=== PATIENT | male | born 1940 | race Caucasian/White ===

== ENCOUNTER 2017-10-24 12:24 | Day surgery (SDC) | payer MEDICARE, MEDICAID ==
[~2017-10-24] VITALS: Ht 172.7 cm; Wt 77.1 kg
[~2017-10-24 12:24] MED LIST: ADVA100A INH; ALBU17I INH; ALBU1AER INH; CLOP75 PO; FOSI10TA PO; FURO1TAB93 PO; GABA300 PO; GLUC10TA3 PO; METF-324 PO; POTA-243 PO; PRAV10 PO; PRIL40CA PO; PRIN5TAB PO; SPIRCAP INH; ST JTAB PO; TRAM50TA PO; TUMS750C OR; VITA20003 OR
[2017-10-24] MEDS ORDERED: IOHEXOL 350 MG/ML 50 ML BTL (for Cath Lab) OTHER ONE ×2 (12:25)
--- NOTE | 2017-10-24 12:59 | PD.VS.PN ---
Pre-operative Note Pre-operative diagnosis: PAD, R LE tissue loss Planned procedure: Aortogram w/ R LE angiogram endovascular intervention Interval History: Pt has been feeling well and no complaints except his foot hurting. Ready for angiogram and potential endovascular intervention. Labs: pending Blood: none needed Imaging: will make in cathode builder Orders: NPO Solumedrol / benadryl Post-operative destination: DOCU Operative site marked: Yes Consent: Informed consent has been obtained from Hieu Watkins. I have explained the procedure in detail and discussed the risks, benefits, and potential complications. All questions have been answered. Alvarado Gonsalez MD Oct 24, 2017 12:59
[2017-10-24] MEDS ORDERED: SODIUM BICARBONATE 100 MEQ in D5W 1000 ML IV SCH (13:15)
[2017-10-24] MEDS ORDERED: methylPREDNISolone SOD SUCC 125 MG/2 ML VIAL IV PUSH ONE (13:30)
[2017-10-24] MEDS ORDERED: diphenhydrAMINE HCL 50 MG/ML VIAL IV PUSH ONE (13:30)
[2017-10-24 13:32] LABS: AUTOMATED NEUTROPHIL # 8.1 TH/MM3 (1.8-7.7); BASOPHIL % 0.3 % (0.0-2.0); EOSINOPHIL # 0.1 TH/MM3 (0-0.4); EOSINOPHIL % 0.7 % (0.0-4.0); HEMOGLOBIN 7.6 GM/DL (13.0-17.0); LYMPH % 9.8 % (9.0-44.0); LYMPHOCYTE # 0.9 TH/MM3 (1.0-4.8); MEAN CELL VOLUME 65.4 FL (80.0-100.0); MEAN CORPUSCULAR HEMOGLOBIN 19.9 PG (27.0-34.0); MEAN CORPUSCULAR HGB CONC 30.5 % (32.0-36.0); MEAN PLATELET VOLUME 9.3 FL (7.0-11.0); MONO % 5.5 % (0.0-8.0); MONOCYTE # 0.5 TH/MM3 (0-0.9); NEUT % 83.7 % (16.0-70.0); PLATELET COUNT 145 TH/MM3 (150-450); RED BLOOD COUNT 3.82 MIL/MM3 (4.50-5.90); RED CELL DISTRIBUTION WIDTH 18.4 % (11.6-17.2); WHITE BLOOD COUNT 9.6 TH/MM3 (4.0-11.0)
[2017-10-24 13:36] LABS: INTERNATIONAL NORMALIZED RATIO 1.1 RATIO; PROTHROMBIN TIME - PATIENT 11.1 SEC (9.8-11.6)
[2017-10-24 13:38] VITALS: BP 112/53; PULSE 58; RESP 18; TEMP 97.8; O2SAT 99
[2017-10-24 13:45] LABS: BICARBONATE 17.3 MEQ/L (21.0-32.0); CALCIUM 8.9 MG/DL (8.5-10.1); CREATININE 2.23 MG/DL (0.60-1.30)
[2017-10-24] MEDS ORDERED: MULT-65 PO (13:54)
[2017-10-24] MEDS ORDERED: NOVOLOGP2 SQ (13:54)
[2017-10-24] MEDS ORDERED: GABA400C5 PO (13:54)
[2017-10-24] MEDS ORDERED: FURO40TA PO (13:54)
[2017-10-24] MEDS ORDERED: FERR325T18 PO (13:54)
[2017-10-24] MEDS ORDERED: RISP0.5T2 PO (13:54)
[2017-10-24] MEDS ORDERED: LEXA20TA PO (13:54)
[2017-10-24] MEDS ORDERED: FOSI10TA PO (13:54)
[2017-10-24] MEDS ORDERED: ADVA250A INH (13:54)
[2017-10-24] MEDS ORDERED: POTA10CA PO (13:54)
[2017-10-24] MEDS ORDERED: CLOP75TA PO (13:54)
[2017-10-24] MEDS ORDERED: MEMA28CA PO (13:54)
[2017-10-24] MEDS ORDERED: TRAZ100T10 PO (13:54)
[2017-10-24] MEDS ORDERED: DOCU100C15 PO (13:54)
[2017-10-24] MEDS ORDERED: LOVA10TA PO (13:54)
[2017-10-24] MEDS ORDERED: METF500T PO (13:54)
[2017-10-24] MEDS ORDERED: DONE10TA7 PO (13:54)
[2017-10-24] MEDS ORDERED: RANI150T PO (13:54)
[2017-10-24] MEDS ORDERED: HEPARIN-NS/PF FLUSH BAG 2,000 ML IV FLUSH ONE (14:01)
[2017-10-24] MEDS ORDERED: LIDOCAINE HCL 2% 50 ML VIAL ONE (14:02)
[2017-10-24] MEDS ORDERED: MIDAZOLAM HCL 2 MG/2 ML VIAL ONE (14:02)
[2017-10-24] MEDS ORDERED: NITROGLYCERIN INJ 0 ML ONE (14:02)
[2017-10-24] MEDS ORDERED: HEPARIN SODIUM - IV 10,000 UNITS/10 ML VIAL ONE (14:02)
[2017-10-24 14:04] LABS: KERATOCYTES OCC (NORMAL); OVALOCYTES 2+ (NORMAL)
--- NOTE | 2017-10-24 14:31 | HHI.PR ---
cc: Alvarado Gonsalez MD Immediate Post Op Note Procedure Date: Oct 24, 2017 Pre Op Diagnosis: R LE tissue loss, PAD Post Op Diagnosis: R LE tissue loss, PAD Surgeon: Alvarado Gonsalez Derrick Builder(s): none Procedure: R LE angiogram Findings: normal vasculature without any hemodynamically significant stenosis Additional Information: 4F sheath removed in OR Complications: none apparent Estimated blood loss: 5mL Anesthesia: MAC Drains: None IVF Patient to: Other (DOCU) Patient Condition: Good Date/Time of Procedure: SEE SURGICAL CARE RECORD Alvarado Gonsalez MD Oct 24, 2017 14:31
--- NOTE | 2017-10-24 14:45 | CATHPROC ---
[facility] [employer] HIS Report Study Information Study Number Admission Scheduled Start Study Start [id number] Oct 24 2017 12:24PM 10/24/2017 Oct 24 2017 1:56PM [facility] Service Cath Endovascular Study Admit Source Facility Department Other [facility] Physician and Clinical Staff Initial MD Gonsalez, Alvarado Productivity Engineer Belem Meeks,RN Recorder Charlie Lara,RT(R) ScrRiana Saeed,RT(R) (BS) Procedures Performed Procedure Location (Site) Vessel Name Abdominal Angiogram Fem Art (left) Femoral Art Abdominal Angiogram Popliteal R (R10) Popliteal Abdominal Angiogram SFA (right) Femoral Art Abdominal Angiogram Tib, Ant. (right) Popliteal Equipment Time Design Draftsman Description Size Mfg Part Number Used/Scraped [id number] 14:21 ANGIO-DYNAMICS OMNI FLUSH 65CM CATHETER FR 4 Used *[id number] INTRODUCER SET, 14:21 [employer] FR 5 [id number] *[id number] Used MICROPUNCTURE STIFF [id number] 14:21 [employer] PACK, CCL CUSTOM * Used *[id number] 14:21 [employer] MEDICAL PRESSURE TUBING 48" 48" [id number] Used [id number] 14:21 NAMIC TUBING, HIGH PRESSURE 20" 20" Used *[id number] TUBING, PRESSURE INJECTION [id number] 14:21 NAMIC PACER 72" Used 72" *[id number] 14:21 [employer]ED OMNIPAQUE, 300 MG, 150ML 150ML [id number] Used 14:21 [employer] OMNIPAQUE, 300 MG, 50ML 50ML [id number] Used [id number] 14:21 JASMINE MEDICAL BLANKET,WARM AIR CCL * Used *[id number] 14:21 TERUMO MEDICAL SHEATH, FR4 TERUMO (10CM) FR 4 Used *[id number] WIRE, ANGLED GLIDE .035 [id number] 14:21 TERUMO MEDICAL/JULIET 260CM Used 260CM *[id number] History: Allergies Allergy Reaction No Known Allergies shellfish derived Medication Medication Total Dose (Bolus/Oral) Medication Total Dosage/Unit 1% XYLOCAINE 10 mL BENADRYL 100 mg SOLU-MEDROL 125 mg VERSED 1 mg Medications (Bolus/Oral) Medication Time Given Dosage/Unit Administered By Reason SOLU-MEDROL 10/24/2017 2:05:18 PM 125 mg Adamy, Belem 125 mg SOLU-MEDROL given in lab by Belem Meeks, ANNETTE via Peripheral IV. Ordered by Alvarado Gonsalez. BENADRYL 10/24/2017 2:06:36 PM 50 mg Adamy, Belem 50 mg BENADRYL given in lab by Belem Meeks, RN via Peripheral IV. Ordered by Alvarado Gonsalez. VERSED 10/24/2017 2:10:30 PM 1 mg Adamy, Belem 1 mg VERSED given in lab by Belem Meeks, ANNETTE via Peripheral IV. Ordered by Alvarado Gonsalez. BENADRYL 10/24/2017 2:11:43 PM 50 mg Adamy, Belem 50 mg BENADRYL given in lab by Belem Meeks, ANNETTE via Peripheral IV. Ordered by Alvarado Gonsalez. 1% XYLOCAINE 10/24/2017 2:20:08 PM 10 mL Alvarado Gonsalez 10 mL 1% XYLOCAINE given in lab by Alvarado Gonsalez in Left Groin via Subcutaneous. Ordered by Alvarado Gonsalez. Medication (Drip) Medication Time Given Dosage/Unit Concentration/Unit Diluent (ml) Solution IV Solutions 10/24/2017 2:17:09 PM 0 mL (IV) 500 NaCl .9 Patient arrived on IV Solutions in Left Antecubital via Peripheral IV. Pump/Drip Flow = 20 ml/hr usin g NaCl .9. Final Case Assessment Cardiovascular HR Rhythm NIBP Chest Pain 63 sr 127/61 0 Edema Present Skin color Skin None Normal Warm Dry Circulatory - Right Pulses Femoral 2 Scale (0,1,2,3,4,d) Circulatory - Left Pulses Femoral 2 Scale (0,1,2,3,4,d) Neurological State Oriented to time-place- Alert Moves all extremities person Respiration - General Respiration Rate SpO2 (%) O2 (lpm) (B/min) 18 96 0 Final Case Assessment Cardiovascular HR Rhythm NIBP 86 sr 98/49 Edema Present Skin color Skin None Normal Warm Dry Circulatory - Right Pulses Femoral 2 Scale (0,1,2,3,4,d) Circulatory - Left Pulses Femoral 2 Scale (0,1,2,3,4,d) Neurological State Oriented to time-place- Moves all extremities person Respiration - General Respiration Rate SpO2 (%) O2 (lpm) (B/min) 18 96 0 Chronological Log Time Study Chronological Log 13:56:34 Patient arrived via Bed. 13:56:35 Patient Name, D.O.B, / Armband Verified By R.N. 14:05:18 125 mg SOLU-MEDROL given in lab by Belem Meeks RN via Peripheral IV. Ordered by Robert. Sunshine 14:06:36 50 mg BENADRYL given in lab by Belem Meeks RN via Peripheral IV. Ordered by Irena Gonsalez. Vitals capture started with the following parameters, Patient=Adult, Interval=5 min, Initial Pr dppfjo=394 mmHg, 14:08:21 Deflation Rate=5 mmHg, Cuff placed on Right Ankle 14:09:07 HR=68 bpm, GSSH=477/61 mmhg, SpO2=97.0 %, Resp=17 B/min, Platt=2 14:10:30 1 mg VERSED given in lab by Belem Meeks RN via Peripheral IV. Ordered by John Gonsalez 14:11:43 50 mg BENADRYL given in lab by Belem Meeks RN via Peripheral IV. Ordered by Irena Gonsalez 14:13:13 Reference ECG taken 14:13:48 Consent signed by the physician and the patient and verified by the [facility] staff. 14:13:49 Verbal Stimulation=2 Physical Stimulation=2 Airway=2 Respiration=2 TOTAL=8. (0=absent, 1=li mited, 2=present) 14:13:58 HR=68 bpm, TCRD=465/57 mmhg, SpO2=93.0 %, Resp=10 B/min, Platt=2 14:13:58 Presedation assessment performed by [facility] RN. 14:14:00 Patient has been NPO for More than 6Hrs. 14:14:08 Skin Breakdown-noted is non healing healing ulcer present right LLE. 14:16:53 A # 20 IV was noted in the Antecubital (left). Grade = 0 14:17:09 Patient arrived on IV Solutions in Left Antecubital via Peripheral IV. Pump/Drip Flow = 20 ml/hr using NaCl .9. 14:17:26 History and physical on the chart or being dictated. Assessment: Final Case, HR=63 BPM, Rhythm=sr, WZDK=607/61 mmhg, Chest Pain=0, Edema=None, Color =Normal, Skin = Warm, Dry Right Pulses: Femoral=2 14:17:29 Left Pulses: Femoral=2 Neurological: State=Alert, Ox3, ALBERTO Respiration: Resp=18 B/min, SpO2=96 %, O2=0 lpm 14:18:57 HR=69 bpm, IBBR=602/52 mmhg, SpO2=93.0 %, Resp=10 B/min, Platt=2 14:19:25 Bilateral groins prepped with 2% chlorhexidine, and draped after a 3 minute waiting time. Time Out. Correct patient, correct procedure, correct physician, power injector loaded with con trast with surgical team 14:19:34 present. Time Out Concurred by MD and individual staff in procedure. Loaded by Shey Meeks rn , verified by Sandra Mccray. 14:20:00 Case Start 14:20:01 Verbal Stimulation=2 Physical Stimulation=2 Airway=2 Respiration=2 TOTAL=8. (0=absent, 1=li mited, 2=present) 14:20:08 10 mL 1% XYLOCAINE given in lab by Alvarado Gonsalez in Left Groin via Subcutaneous. Ordered b Alvarado Haq. 14:20:24 Access site was Left Femoral Artery. 14:20:54 A SHEATH, FR4 TERUMO (10CM) FR 4 was advanced into the Fem Art (left) using the Percutaneou s technique. A SHEATH, FR4 TERUMO (10CM) FR 4 was exchanged in the Fem Art (left). This was necessary in ord er to 14:21:01 accomodate a larger catheter. A OMNI FLUSH 65CM CATHETER FR 4 was advanced over a wire. OMNIPAQUE, 300 MG, 150ML 150ML was us ed for 14:21:07 injections. 14:21:32 Wire removed 14::42 Through a OMNI FLUSH 65CM CATHETER FR 4, The Right fem. Art was injected with 4 cc's of con trast. 14:22:36 Through a OMNI FLUSH 65CM CATHETER FR 4, The Right SFA was injected with 4 cc's of contrast . 14:22:52 Through a OMNI FLUSH 65CM CATHETER FR 4, The Right POP. was injected with 4 cc's of contras t. 14:23:41 Through a OMNI FLUSH 65CM CATHETER FR 4, The Right Tibials were injected with 4 cc's of con trast. 14:23:56 HR=67 bpm, NIBP=97/49 mmhg, SpO2=94.0 %, Resp=10 B/min, Platt=2 14:25:39 Catheter was removed 14:28:30 Case End 14:28:57 HR=58 bpm, NIBP=94/50 mmhg, SpO2=94.0 %, Resp=10 B/min, Platt=2 14:30:59 Sheath removed; pressure applied to access site. 14:33:56 HR=55 bpm, IIKB=603/49 mmhg, SpO2=95.0 %, Resp=11 B/min, Platt=2 14:38:58 HR=55 bpm, NIBP=98/49 mmhg, SpO2=96.0 %, Resp=17 B/min, Platt=2 14:42:44 Sterile dressing applied to site Assessment: Final Case, HR=86 BPM, Rhythm=sr, NIBP=98/49 mmhg, Edema=None, Color=Normal, Skin = Warm, Dry Right Pulses: Femoral=2 14:42:52 Left Pulses: Femoral=2 Neurological: Ox3, ALBERTO Respiration: Resp=18 B/min, SpO2=96 %, O2=0 lpm 14:43:57 HR=54 bpm, DAFO=380/54 mmhg, SpO2=95.0 %, Resp=7 B/min, Platt=2 14:44:27 Catheter(s) removed without difficulty 14:44:41 Cine recording checked. 14:45:32 Patient moved to stretcher 14:45:39 Vitals capture stopped. End Study - Contrast Media Used In Study Contrast Total Opened (mL) Total Used (mL) Total Wasted (mL) Omnipaque 25 25 0 End Study - Radiation Exposure Fluoro Time (minutes) 1.7 End Study - Patient Disposition Complications Transferred To No Outpatient Bed
--- NOTE | 2017-10-24 16:16 | MP ---
cc: Alvarado Gonsalez MD DATE OF OPERATION: 10/24/2017 PREOPERATIVE DIAGNOSIS: Right lower extremity tissue loss, peripheral arterial occlusive disease. POSTOPERATIVE DIAGNOSIS: Right lower extremity tissue loss, peripheral arterial occlusive disease. PROCEDURE : Right lower extremity angiogram. ATTENDING SURGEON: Alvarado Gonsalez MD ANESTHESIA: Local with sedation. INDICATION: Mr. Watkins is a 76-year-old gentleman who lives in a snf who has right lower extremity tissue loss. He has nonpalpable pedal pulses and atherosclerotic disease on his noninvasive studies. He is taken to the operating room for angiographic evaluation and treatment. There is no prior catheter based imaging available for my review. DESCRIPTION OF PROCEDURE: Informed consent was obtained from the patient. He was taken to the operating room and placed supine on the operating table. An appropriate timeout was taken to ensure the patient, the operative site and planned procedure. The administration of antibiotics was not necessary as this is a clean procedure without planned implantation of any foreign objects. Everyone in the room agreed and we proceeded. His bilateral groins were prepped and draped and the left groin was anesthetized with 1% lidocaine. A 21-gauge micropuncture needle was used to access the left common femoral artery. This was exchanged using Seldinger technique for micropuncture sheath, through which a 0.035 Glidewire was introduced and the micropuncture sheath was exchanged for a 4-Namibian sheath. A VCF catheter was placed over the wire and through the sheath and navigated down to the right common femoral artery along with the Glidewire. Once the VCF catheter was in the right common femoral artery, right lower extremity angiogram was obtained. The wire was reintroduced. The wire, catheter and sheath removed and pressure held for hemostasis. There were no complications. I was present, scrubbed, and performed the entire procedure. INTERPRETATION OF IMAGES: The patient has a patent common femoral artery, profunda and superficial femoral artery. There is no evidence of any hemodynamically significant stenosis of any point of the superficial femoral artery. The popliteal artery is patent and there is 3-vessel runoff to the foot with no hemodynamically significant stenoses. MD CRESENCIO Talavera/MARCELINO , 03:42 PM , 04:15 PM [facility]
== END 2017-10-24 16:52 | disposition home or self-care (01) ==
LOC: HDOC 12:24 → HDIC 12:24 → HDOC 16:52
PROVIDERS: ATTEND Surgery
DX: I73.9 Peripheral vascular disease, unspecified (principal); I87.2 Venous insufficiency (chronic) (peripheral); I48.91 Unspecified atrial fibrillation; I10 Essential (primary) hypertension; E11.9 Type 2 diabetes mellitus without complications; J44.9 Chronic obstructive pulmonary disease, unspecified; E78.5 Hyperlipidemia, unspecified; Z79.4 Long term (current) use of insulin
CPT/HCPCS: 36246; 75710; 80048; 82948; 85025; 85610; 99152; C1769; C1893; J1200; J1644; J2250; J2930; J3010; Q9967